=== PATIENT | female | born 1955 | race Caucasian/White ===

== ENCOUNTER → 2018-01-03 08:54 | Outpatient (CLI) | payer BC, OTHER, SELFPAY ==
[2018-01-03 09:59] LABS: Add Manual Diff / Slide Review NO; Basophils Percent Auto 0.6 % (0-2); Eosinophils Percent Auto 1.9 % (2-4); Hemoglobin 13.6 g/dL (12.0-16.0); Lymphocytes Percent Auto 31.6 % (25-40); Mean Corpuscular HGB Conc 34.1 % (30-36); Mean Corpuscular Volume 85.2 fL (80-100); Monocytes Percent Auto 10.7 % (3-14); Neutrophils Absolute Auto 2700 /uL (3000-5900); Neutrophils Percent Auto 55.2 % (50-75); Platelet Count 325 X10^3/uL (150-400); Red Blood Cell Count 4.69 X10^6/uL (4.0-5.2); Red Cell Distribution Width 14.7 % (11.6-14.8); White Blood Cell Count 4.9 X10^3/uL (4.5-11.0)
[2018-01-03 10:53] LABS: Alanine Aminotransferase 46 IU/L (9-52); Albumin 4.8 g/dL (3.5-5.0); Albumin Globulin Ratio 1.5 (1.0-2.8); Alkaline Phosphatase 89 U/L (38-126); Aspartate Aminotransferase 40 IU/L (14-36); BUN Creatinine Ratio 24.3 (6-22); Bilirubin Total 0.6 mg/dL (0.2-1.3); Blood Urea Nitrogen 17 mg/dL (7-17); Carbon Dioxide 31 mmol/L (22-32); Chloride 102 mmol/L (98-107); Cholesterol 290 mg/dL (140-199); Estimated Glomerular Filt Rate > 60.0 mL/min (>60); Globulin 3.2 g/dL (1.7-4.1); Glucose 90 mg/dL (80-110); HDL Cholesterol 68 mg/dL (40-60); HEMOLYSIS < 15 (0-50); LDL Cholesterol Calculated 201 mg/dL (<100); Potassium 4.4 mmol/L (3.4-5.1); Sodium 144 mmol/L (137-145); Triglycerides 105 mg/dL (35-150)
== END ==
PROVIDERS: PCP Family Medicine; Visit Provider Family Medicine
DX: Z00.00 Encounter for general adult medical examination without abnormal findings (principal)
CPT/HCPCS: 36415; 80053; 80061; 84443; 85025

== ENCOUNTER → 2018-03-27 08:36 | Outpatient (CLI) | payer BC, OTHER, SELFPAY ==
[2018-03-27 09:55] LABS: Hemoglobin A1C% w Est Avg Glu 5.4 % (4.0-6.0)
[2018-03-27 10:17] LABS: Glucose 83 mg/dL (80-110)
[2018-03-29 15:14] LABS: Insulin Level Total 3.4 uIU/mL (2.0-19.6)
== END ==
PROVIDERS: Family Provider Family Medicine; PCP Family Medicine; Visit Provider Nurse Practitioner
DX: E78.1 Pure hyperglyceridemia (principal)
CPT/HCPCS: 36415; 82947; 83036; 83525

== ENCOUNTER → 2018-07-11 08:17 | Outpatient (CLI) | payer BC, OTHER, SELFPAY ==
[2018-07-11 10:59] LABS: Cholesterol 246 mg/dL (140-199); HDL Cholesterol 71 mg/dL (40-60); LDL Cholesterol Calculated 160 mg/dL (<100); Triglycerides 76 mg/dL (35-150)
== END ==
PROVIDERS: PCP Family Medicine; Visit Provider Family Medicine
DX: E78.5 Hyperlipidemia, unspecified (principal)
CPT/HCPCS: 36415; 80061

== ENCOUNTER → 2018-09-09 08:22 | Outpatient (CLI) | payer BC, OTHER, SELFPAY ==
--- NOTE | 2018-09-09 | DI.MG.S_ITS ---
BILATERAL DIGITAL DIAGNOSTIC MAMMOGRAM 3D/2D: 09/09/2018 CLINICAL: Per patient, the patient's referring provider felt a palpable right breast lump under the right nipple, which the patient cannot herself feel. Comparison is made to exams dated: 06/21/2016 mammogram, 02/10/2015 mammogram, 01/22/2015 mammogram, and 01/23/2014 mammogram - [facility]. The tissue of both breasts is heterogeneously dense. This may lower the sensitivity of mammography. Per patient, the patient's referring provider felt a palpable right breast lump under the right nipple, which the patient cannot herself feel. There is dense fibroglandular tissue in the right retroareolar region. There is no other underlying mammographic abnormality in this region. There is a linear scar marker overlying the outer left breast, with underlying parenchymal scarring that appears similar to prior exams. A focal asymmetry in the upper outer left breast at posterior depth underlying this scar marker resolves with additional spot compression views and likely represented superimposition of benign fibroglandular tissues. An asymmetry in the outer right breast at posterior depth resolves with additional spot compression views and likely represented superimposition of benign fibroglandular tissues. IMPRESSION: INCOMPLETE: NEEDS ADDITIONAL IMAGING EVALUATION Dense fibroglandular tissue in the right retroareolar region, at the site of where the patient reports her referring provider felt a palpable abnormality. Targeted diagnostic ultrasound recommended for further evaluation, which will be performed immediately following this exam. This exam was interpreted at Station ID: [id number]. NOTE: For mammograms, a report in lay terms will be sent to the patient. Approximately 15% of breast malignancies will not be visualized mammographically. In the management of a palpable breast mass, a negative mammogram must not discourage biopsy of a clinically suspicious lesion. Electronically Signed By: Felix Dumont M.D. ecl/:09/09/2018 09:20:00 copy to: Irais Lancaster letter sent: Additional Imaging Needed ACR BI-RADS Category 0: Incomplete 3340F
--- NOTE | 2018-09-09 | DI.US.S_ITS ---
LIMITED ULTRASOUND OF RIGHT BREAST: 09/09/2018 CLINICAL: Per patient, the patient's referring provider felt a palpable right breast lump under the right nipple, which the patient cannot herself feel. Comparison is made to exams dated: 09/09/2018 mammogram - [facility], 06/21/2016 mammogram, 02/10/2015 mammogram, 01/22/2015 mammogram. Real-time and Doppler ultrasound of the right breast retroareolar region/central to the nipple and right nipple were performed. Guajardo scale images of the real-time examination were reviewed. Targeted ultrasound of the right nipple and retroareolar region demonstrates no abnormality or mass. There is no focal duct dilitation. There is dense fibroglandular tissue. IMPRESSION: NEGATIVE 1) Dense right retroareolar fibroglandular tissue correlating with dense fibroglandular tissue seen on diagnostic mammography. No other sonographic abnormality of the right nipple/retroareolar region to correlate with the possible palpable abnormality felt by the patient's referring provider (with area of concern as indicated by the patient). Recommend clinical follow-up with the patient's referring provider for further evaluation and management. A breast MRI can be considered if there is continued clinical concern. 2) No sonographic evidence of malignancy in the imaged right breast. Return to annual screening mammography recommended. The patient was advised to monitor her breasts and to return sooner for re-evaluation should anything grow or change. This exam was interpreted at Station ID: [id number]. Electronically Signed By: Felix Dumont M.D. ecl/:09/09/2018 10:20:48 copy to: Irais Lancaster letter sent: Clinical Evaluation Ultrasound BI-RADS: 1 Negative
== END ==
PROVIDERS: PCP Family Medicine; Visit Provider Nurse Practitioner Obstetrics & Gynecology
DX: R92.8 Other abnormal and inconclusive findings on diagnostic imaging of breast (principal); N63.10 Unspecified lump in the right breast, unspecified quadrant
CPT/HCPCS: 76642; 77066; G0279

== ENCOUNTER → 2019-03-25 11:29 | Outpatient (CLI) | payer BC, OTHER, SELFPAY ==
[2019-03-25 13:40] LABS: Cholesterol 280 mg/dL (140-199); HDL Cholesterol 70 mg/dL (40-60); LDL Cholesterol Calculated 194 mg/dL (<100); Triglycerides 82 mg/dL (35-150)
== END ==
PROVIDERS: PCP Internal Medicine; Visit Provider Internal Medicine
DX: E78.5 Hyperlipidemia, unspecified (principal)
CPT/HCPCS: 36415; 80061

== ENCOUNTER → 2019-11-17 15:47 | Outpatient (ROUT) | payer OTHER, SELFPAY ==
[2019-11-17 16:00] LABS: Add Manual Diff / Slide Review NO; Basophils Absolute Auto 0 /uL (0-100); Basophils Percent Auto 0.3 % (0-2); Eosinophils Absolute Auto 100 /uL (0-450); Eosinophils Percent Auto 1.4 % (2-4); Hematocrit 38.5 % (36-46); Lymphocytes Absolute Auto 1500 /uL (1100-4500); Mean Corpuscular HGB Conc 33.9 % (30-36); Mean Corpuscular Hemoglobin 29.2 PG (26-34); Mean Corpuscular Volume 86.2 fL (80-100); Monocytes Absolute Auto 700 /uL (0-900); Monocytes Percent Auto 10.4 % (3-14); Neutrophils Absolute Auto 4100 /uL (1500-7000); Neutrophils Percent Auto 64.9 % (50-75); Platelet Count 306 X10^3/uL (150-400); Red Blood Cell Count 4.46 X10^6/uL (4.0-5.2); Red Cell Distribution Width 13.7 % (11.6-14.8); White Blood Cell Count 6.3 X10^3/uL (4.5-11.0)
[2019-11-17 16:07] LABS: Blood Urea Nitrogen 12 mg/dL (7-17); Calcium 9.9 mg/dL (8.4-10.2); Carbon Dioxide 27 mmol/L (22-32); Chloride 104 mmol/L (98-107); Estimated Glomerular Filt Rate > 60.0 mL/min (>60); Glucose 94 mg/dL (80-110); HEMOLYSIS 16 (0-50); Lipase 69 U/L (23-300); Potassium 4.1 mmol/L (3.4-5.1); Sodium 137 mmol/L (137-145)
== END ==
PROVIDERS: PCP Internal Medicine; Visit Provider Student in an Organized Health Care Education/Training Program
DX: R19.7 Diarrhea, unspecified (principal)
CPT/HCPCS: 80048; 83690; 85025

== ENCOUNTER → 2020-08-28 11:22 | Outpatient (CLI) | payer OTHER, SELFPAY ==
--- NOTE | 2020-08-28 11:24 | DI.MG.S_ITS ---
BILATERAL DIGITAL SCREENING MAMMOGRAM 3D/2D WITH CAD: 08/28/2020 CLINICAL: Routine screening. Comparison is made to exams dated: 09/09/2018 mammogram - [facility], 06/21/2016 mammogram, and 02/10/2015 mammogram - [facility]. The tissue of both breasts is heterogeneously dense. This may lower the sensitivity of mammography. Current study was also evaluated with a Computer Aided Detection (CAD) system. There are benign post operative findings in the left breast. No significant masses, calcifications, or other findings are seen in either breast. There has been no significant interval change. IMPRESSION: BENIGN There is no mammographic evidence of malignancy. A 1 year screening mammogram is recommended. This exam was interpreted at Station ID: [id number]. NOTE: For mammograms, a report in lay terms will be sent to the patient. Approximately 15% of breast malignancies will not be visualized mammographically. In the management of a palpable breast mass, a negative mammogram must not discourage biopsy of a clinically suspicious lesion. Electronically Signed By: Laz boyd/gunner:08/30/2020 07:34:00 copy to: Irais Lancaster letter sent: Normal Exam ACR BI-RADS Category 2: Benign Finding(s) 3342F
== END ==
PROVIDERS: PCP Internal Medicine; Referring Provider Internal Medicine; Visit Provider Internal Medicine
DX: Z12.31 Encounter for screening mammogram for malignant neoplasm of breast (principal)
CPT/HCPCS: 77063; 77067

== ENCOUNTER → 2021-09-20 07:57 | Outpatient (CLI) | payer OTHER, SELFPAY | PROVIDERS: PCP Internal Medicine; Referring Provider Internal Medicine; Visit Provider Internal Medicine | DX: Z53.20 Procedure and treatment not carried out because of patient's decision for unspecified reasons (principal) ==

== ENCOUNTER → 2021-12-07 15:50 | Outpatient (CLI) | payer OTHER, SELFPAY ==
--- NOTE | 2021-12-07 15:51 | DI.MG.S_ITS ---
BILATERAL DIGITAL SCREENING MAMMOGRAM 3D/2D WITH CAD: 12/07/2021 CLINICAL: Routine screening. Comparison is made to exams dated: 08/28/2020 mammogram, 09/09/2018 mammogram - [facility], and 06/21/2016 mammogram - [facility]. Both breasts are heterogeneously dense, which may obscure small masses (category c / 51-75% glandular tissue). Current study was also evaluated with a Computer Aided Detection (CAD) system. There are benign post operative findings in the left breast. No significant masses, calcifications, or other findings are seen in either breast. There has been no significant interval change. IMPRESSION: BENIGN There is no mammographic evidence of malignancy. A 1 year screening mammogram is recommended. Based on the Tyrer Cuzick model (a risk assessment model) the patient's lifetime risk is 8.5% and her 10 year risk is 4.3%. According to the ACR, ACS, and NCCN guidelines, an annual breast MRI exam along with mammogram is recommended if the patient's lifetime risk is 20% or greater. This exam was interpreted at Station ID: [id number]. NOTE: For mammograms, a report in lay terms will be sent to the patient. Approximately 15% of breast malignancies will not be visualized mammographically. In the management of a palpable breast mass, a negative mammogram must not discourage biopsy of a clinically suspicious lesion. Electronically Signed By: Stacia may/gunner:12/08/2021 08:52:34 copy to: Irais Lancaster letter sent: Normal Exam ACR BI-RADS Category 2: Benign Finding(s) 3342F
== END ==
PROVIDERS: PCP Internal Medicine; Referring Provider Internal Medicine; Visit Provider Internal Medicine
DX: Z12.31 Encounter for screening mammogram for malignant neoplasm of breast (principal)
CPT/HCPCS: 77063; 77067

== ENCOUNTER → 2023-08-02 14:19 | Outpatient (CLI) | payer MEDICARE, OTHER, SELFPAY ==
--- NOTE | 2023-08-02 14:25 | DI.MG.S_ITS ---
BILATERAL DIGITAL SCREENING MAMMOGRAM 3D/2D WITH CAD: 08/02/2023 CLINICAL: Routine screening. Comparison is made to exams dated: 12/07/2021 mammogram, 08/28/2020 mammogram, and 09/09/2018 mammogram - [facility]. Both breasts are extremely dense, which lowers the sensitivity of mammography (category d />75% glandular tissue). Current study was also evaluated with a Computer Aided Detection (CAD) system. There are benign post operative findings in the left breast. No significant masses, calcifications, or other findings are seen in either breast. There has been no significant interval change. IMPRESSION: BENIGN There is no mammographic evidence of malignancy. A 1 year screening mammogram is recommended. Based on the Tyrer Cuzick model (a risk assessment model) the patient's lifetime risk is 11.4% and her 10 year risk is 6.4%. According to the ACR, ACS, and NCCN guidelines, an annual breast MRI exam along with mammogram is recommended if the patient's lifetime risk is 20% or greater. This exam was interpreted at Station ID: [id number]. NOTE: For mammograms, a report in lay terms will be sent to the patient. Approximately 15% of breast malignancies will not be visualized mammographically. In the management of a palpable breast mass, a negative mammogram must not discourage biopsy of a clinically suspicious lesion. Electronically Signed By: Jefferson angel/gunner:08/02/2023 15:28:15 letter sent: Normal Exam ACR BI-RADS Category 2: Benign Finding(s) 3342F
--- NOTE | 2023-08-02 14:25 | DI.RAD.S_ITS ---
PROCEDURE: XR DEXA AXIAL SKELETON INDICATIONS: OSTEOPOROSIS SCREENING / ROUTINE SCREENING COMPARISON: None. FINDINGS: Lumbar Spine: Bone mineral density 0.809 g/cm2, T score -2.2. Left Hip: Bone mineral density 0.750 g/cm2, T score -1.6. Left Femoral Neck: Bone mineral density 0.600 g/cm2, T score -2.2. Right Hip: Bone mineral density 0.765 g/cm2, T score -1.5. Right Femoral Neck: Bone mineral density 0.571 g/cm2, T score -2.5. Fracture Risk Calculation (when applicable): Not provided due to osteoporosis. (T score greater or equal to -1.0 to: NORMAL) (T score from -1.1 to -2.4: OSTEOPENIA) (T score less than or equal to -2.5: OSTEOPOROSIS) IMPRESSION: Osteoporosis. Follow-up guidelines as follows: Osteoporosis: Consider a repeat DEXA and Vertebral Fracture Assessment (VFA) exam in 2 years or sooner if medically necessary, to reassess this patient's status. Osteopenia: Consider a repeat DEXA in 2-3 years to reassess this patient's status, or if there is a new clinical indication. Normal: Consider a repeat DEXA in 5 years or sooner, or if there is a new clinical indication. Dictated by: Vijay Ferguson M.D. on 08/02/2023 at 22:09 Approved by: Vijay Ferguson M.D. on 08/02/2023 at 22:10
== END ==
PROVIDERS: PCP Physician Assistant; Referring Provider Physician Assistant; Visit Provider Physician Assistant
DX: M81.0 Age-related osteoporosis without current pathological fracture (principal); Z12.31 Encounter for screening mammogram for malignant neoplasm of breast; R92.343 Mammographic extreme density, bilateral breasts; Z78.0 Asymptomatic menopausal state
CPT/HCPCS: 77063; 77067; 77080

== ENCOUNTER → 2023-10-30 14:08 | Outpatient (CLI) | payer MEDICARE, OTHER, SELFPAY ==
--- NOTE | 2023-10-30 14:09 | DI.US.S_ITS ---
PROCEDURE: US PELVIC COMPLETE INDICATIONS: pelvic pressure TECHNIQUE: Real-time scanning was performed of the pelvic organs, with image documentation. Additional endovaginal scanning was necessary due to incomplete visualization of the adnexal and endometrial structures by transabdominal scanning. COMPARISON: None. FINDINGS: Uterus: Uterus is anteverted and normal in size at 6.4 x 3.9 x 4.7 cm. The myometrium is homogeneous in appearance but contains multiple fibroids. The largest fibroid measures 1.9 x 1.5 x 2.2 cm and is located within the anterior uterus. The endometrium measures 5 mm. Ovaries: The ovaries could not be visualized. Other: No pathologic free abdominal or pelvic fluid. IMPRESSION: 1. There are multiple uterine fibroids, the largest is located within the anterior aspect of the uterus and measures up to 2.2 cm. Dictated by: Vu Arellano M.D. on 10/30/2023 at 16:13 Approved by: Vu Arellano M.D. on 10/30/2023 at 16:23
== END ==
PROVIDERS: PCP Physician Assistant; Referring Provider Student in an Organized Health Care Education/Training Program; Visit Provider Student in an Organized Health Care Education/Training Program
DX: N92.6 Irregular menstruation, unspecified (principal); D25.9 Leiomyoma of uterus, unspecified; R10.2 Pelvic and perineal pain
CPT/HCPCS: 76830; 76856

== ENCOUNTER → 2024-08-02 12:32 | Outpatient (CLI) | payer MEDICARE, OTHER, SELFPAY ==
--- NOTE | 2024-08-02 12:33 | DI.MG.S_ITS ---
MM screening mammo BI: 08/02/2024. BI-RADS: 1 CLINICAL: 69-year old female for bilateral screening mammogram. Tyrer-Cuzick lifetime risk of 13.5%. Current reported family history of breast cancer: daughter. The patient had a prior left breast biopsy. PRIOR EXAMS 08/02/2023, 12/07/2021, 08/28/2020, 09/09/2018. MAMMOGRAPHY TECHNIQUE: 2D and 3D (tomosynthesis) digital mammographic views obtained, with additional images as needed for full coverage. Current study was also evaluated with a Computer Aided Detection (CAD) system. DENSITY D. The breasts are extremely dense, which lowers the sensitivity of mammography. MAMMOGRAPHY FINDINGS Bilateral: No suspicious mass, asymmetry, microcalcification, or other abnormality seen. IMPRESSION: * No evidence of malignancy. RECOMMENDATIONS Bilateral * Annual screening mammography. OVERALL ASSESSMENT CATEGORY BI-RADS-1: Negative. The [employer] recommends annual screening mammography beginning at age 40 for women with average risk of breast cancer. ELECTRONICALLY SIGNED: Laz Vail M.D. on 08/04/2024 at 04:32:15 PM PT Interpreting Station ID: [id number]
== END ==
PROVIDERS: PCP Physician Assistant; Referring Provider Physician Assistant; Visit Provider Physician Assistant
DX: Z12.31 Encounter for screening mammogram for malignant neoplasm of breast (principal); R92.343 Mammographic extreme density, bilateral breasts; Z80.3 Family history of malignant neoplasm of breast
CPT/HCPCS: 77063; 77067